=== PATIENT | male | born 1945 | race Hispanic/Latino ===

== ENCOUNTER 2021-10-22 11:13 | Emergency (ER) | payer OTHER ==
[~2021-10-22] VITALS: Ht 172.7 cm; Wt 83.9 kg
[2021-10-22 11:15] VITALS: BP 109/64
[2021-10-22 12:01] LABS: APPEARANCE,URINE CLEAR (CLEAR); BILIRUBIN,URINE NEGATIVE (NEGATIVE); COLOR,URINE YELLOW (YELLOW); GLUCOSE, URINE (UA) 500 mg/dL (NEGATIVE); KETONES,URINE NEGATIVE (NEGATIVE); LEUKOCYTE ESTERASE ,URINE NEGATIVE (NEGATIVE); NITRATE,URINE NEGATIVE (NEGATIVE); OCCULT BLOOD,URINE NEGATIVE (NEGATIVE); PROTEIN,URINE NEGATIVE (NEGATIVE); UROBILINOGEN,URINE 0.2 mg/dL (0.2-1.0)
[2021-10-22 12:18] LABS: BACTERIA,URINE Rare /HPF (None Seen); RBC,URINE None Seen /HPF (0-1); WBC,URINE None Seen /HPF (0-1)
[2021-10-22] MEDS ORDERED: MORPHINE 4 MG SYG IM ONE (13:30)
[2021-10-22 13:43] LABS: BASOPHILS % (AUTO) 0.4 % (0.0-5.0); EOSINOPHILS % (AUTO) 0.8 % (0.0-8.0); LYMPHOCYTES % (AUTO) 30.6 % (21.0-51.0); MEAN CORPUSCULAR HEMOGLOBIN 31.9 pg (27.0-33.0); MEAN CORPUSCULAR HGB CONC 34.3 g/dL (32.0-36.0); MONOCYTES % (AUTO) 7.2 % (3.0-13.0); NEUTROPHILS % (AUTO) 60.8 % (40.0-77.0); PLATELET COUNT (AUTO) 147 K/uL (130-400); RED CELL DISTRIBUTION WIDTH 12.2 % (11.0-15.5)
[2021-10-22 13:54] LABS: CARBON DIOXIDE 30 mmol/L (21-32); CHLORIDE 103 mmol/L (101-111); CREATININE 0.9 mg/dL (0.5-1.5); GLOMERULAR FILTR. RATE CALC 87 mL/min (>60); GLUCOSE,RANDOM 242 mg/dL (70-105); POTASSIUM 4.1 mmol/L (3.5-5.1); SODIUM SERUM 140 mmol/L (136-145); UREA NITROGEN, BLOOD 18 mg/dL (7-18)
[2021-10-22 13:59] LABS: ALANINE AMINOTRANSFERASE 26 U/L (12-78); ALBUMIN 3.5 g/dL (3.5-5.0); ASPARTATE AMINOTRANSFERASE 14 U/L (10-37); CRP QUANTITATIVE < 2.00 mg/L (0.00-9.0); TOTAL PROTEIN, SERUM 6.9 g/dL (6.0-8.3)
[2021-10-22 14:48] LABS: ERYTHROCYTE SEDIMENTATION RATE 10 MM/HR (0-20)
[2021-10-22] MEDS ORDERED: ACETAMINOPHEN 325 MG TAB ONE (15:59)
[2021-10-22] MEDS ORDERED: DEXAMETHASONE SOD PHOSPHATE 4 MG/ML 1ML VIAL ONE (15:59)
[2021-10-22] MEDS ORDERED: ACETAMINOPHEN 325 MG TAB PO ONE (16:00)
[2021-10-22] MEDS ORDERED: DEXAMETHASONE SOD PHOSPHATE 4 MG/ML 1ML VIAL IM ONE (16:00)
== END 2021-10-22 16:12 | disposition home or self-care (01) ==
LOC: EDH 11:13
DX: M54.50 Low back pain, unspecified (principal); M62.838 Other muscle spasm; M54.2 Cervicalgia; E11.9 Type 2 diabetes mellitus without complications; Z98.890 Other specified postprocedural states
CPT/HCPCS: 99284; 72125; 80053; 85025; 85651; 86140; 81001; 36415; 72131; 96372 ×2; J1100; J2270

== ENCOUNTER 2023-05-18 07:44 | Emergency (ER) | payer OTHER ==
[~2023-05-18] VITALS: Ht 152.4 cm; Wt 80.3 kg
[2023-05-18] MEDS: KETOROLAC 30MG VIAL (30MG/ML) IVP ONE (09:01)
[2023-05-18] MEDS: FAMOTIDINE 20MG VIAL IV ONE (09:31)
[2023-05-18] MEDS: DIAZEPAM 5 MG/ML 2 ML SYG IVP ONE (09:33)
[2023-05-18] MEDS ORDERED: MELO-106 PO (09:52)
[2023-05-18] MEDS ORDERED: PREG25 PO (09:52)
[2023-05-18] MEDS ORDERED: CYCL10TA16 PO (09:52)
[2023-05-18 10:14] VITALS: BP 115/84; PULSE 78; RESP 18; O2SAT 98
== END 2023-05-18 10:29 | disposition home or self-care (01) ==
LOC: EDH 07:44
DX: G57.10 Meralgia paresthetica, unspecified lower limb (principal); E11.9 Type 2 diabetes mellitus without complications
CPT/HCPCS: 99284; 96374; 96375; 72100; 72220; J3490; J3360; J1885